=== PATIENT | male | born 1975 | race Two or more races ===

== ENCOUNTER 2024-06-06 10:49 | Emergency (ER) | payer OTHER ==
[~2024-06-06] VITALS: Ht 182.9 cm; Wt 129.1 kg
[2024-06-06 11:26] VITALS: BP 140/88; PULSE 100; RESP 18; TEMP 99.2; O2SAT 96
[2024-06-06] MEDS: EPINEPHrine HCL 1 MG/1 ML AMP SC ONE (11:47)
[2024-06-06] MEDS: diphenhdrAMINE HCL 50 MG/1 ML VL IM ONE (11:47)
[2024-06-06] MEDS: methylPREDNISolone SOD SUCC 125 MG/2 ML VL IM ONE (11:48)
[2024-06-06] MEDS ORDERED: HYDR50TA69 PO (12:19)
[2024-06-06] MEDS ORDERED: PRED20TA2 PO (12:19)
== END 2024-06-06 12:34 | disposition home or self-care (01) ==
LOC: ER 10:49
DX: T78.49XA Other allergy, initial encounter (principal); Z79.52 Long term (current) use of systemic steroids; Z79.899 Other long term (current) drug therapy; X58.XXXA Exposure to other specified factors, initial encounter
CPT/HCPCS: 96372; 99284; J0171; J1200; J2919

== ENCOUNTER 2025-02-04 06:14 | Inpatient (IN) | payer MEDICAID, OTHER ==
[~2025-02-04] VITALS: Ht 172.7 cm; Wt 131.0 kg
[~2025-02-04 06:14] MED LIST: HYDR50TA69 PO; PRED20TA2 PO
--- NOTE | 2025-02-04 07:32 | ED.PDOC ---
History of Present Illness HPI Comments A 49-year-old male presents to the ED c/o moderate atraumatic back pain onset 4 days. Patient states that his back pain is located to the lower back and radiates to his right leg causing some tingling Taking Naproxen with no improvement Patient is able to ambulate normally without assistance. Also c/o testicular discomfort x years and pain is gradually worsening Reports moderate discomfort that is rated 7/10 Has not been seen for this as patient does not have a primary care provider Denies fevers chills night sweats Denies pelvic pain Denies nausea vomiting diarrhea Denies dysuria urgency frequency Denies history of UTI Denies blood in the urine or semen Denies recent instruments/toys and urethra Denies current tobacco use Denies family history of prostate issues Denies history of chronic steroid use or history of osteoporosis Denies any history of cancer Denies fevers chills night sweats nausea vomiting unintentional weight loss Denies IV drug use history of HIV/TB Denies abdominal "tearing" pain Denies syncope Denies urinary incontinence or urinary changes Denies numbness tingling of the groin or inner thigh Denies previous back procedure or surgery Chief Complaint: Back Pain Time Seen by MD: 07:23 Reviewed Notes: Nurses Notes, Medications, Allergies Allergies: Coded Allergies: NO KNOWN ALLERGIES (Unverified , 06/06/24) Home Meds Discontinued Scripts Hydroxyzine Hcl (Hydroxyzine Hcl) 50 Mg Tab, 1 TAB PO TID, #30 TAB Prov:JERRICA MARTINEZ 06/06/24 Prednisone (Prednisone) 20 Mg Tab, 60 MG PO DAILY, #24 TAB Prov:JERRICA MARTINEZ 06/06/24 Information Source: Patient Mode of Arrival: Ambulatory Severity: Moderate Timing: Days Duration: Since onset Prehospital treatment: None Past Medical History PAST MEDICAL HISTORY: Denies Surgical History: Denies all surgeries Family History Family History: Reviewed,noncontributory to illness, Unknown Social History Smoker: Non-Smoker Alcohol: Denies ETOH Use Drugs: Denies Drug Use Lives In: Home Constitutional: denies: chills, diaphoresis, fatigue, fever, malaise, sweats, weakness, others EENTM: denies: blurred vision, double vision, ear bleeding, ear discharge, ear drainage, ear pain, ear ringing, eye pain, eye redness, hearing loss, mouth pain, mouth swelling, nasal discharge, nose bleeding, nose congestion, nose pain, photophobia, tearing, throat pain, throat swelling, voice changes, others Respiratory: denies: cough, hemoptysis, orthopnea, SOB at rest, shortness of breath, SOB with excertion, stridor, wheezing, others Cardiovascular: denies: chest pain, dizzy spells, diaphoresis, Dyspnea on exertion, edema, irregular heart beat, left arm pain, lightheadedness, palpitations, PND, syncope, others Gastrointestinal: denies: abdomen distended, abdominal pain, blood streaked bowels, constipated, diarrhea, dysphagia, difficulty swallowing, hematemesis, melena, nausea, poor appetite, poor fluid intake, rectal bleeding, rectal pain, vomiting, others Genitourinary: denies: burning, dysuria, flank pain, frequency, hematuria, incontinence, penile discharge, penile sore, pain, testicle pain, testicle swelling, urgency, others Neurological: denies: dizziness, fainting, headache, left sided numbness, left sided weakness, numbness, paresthesia, pre-existing deficit, right sided numbness, right sided weakness, seizure, speech problems, tingling, tremors, weakness, others Musculoskeletal: reports: back pain; denies: gout, joint pain, joint swelling, muscle pain, muscle stiffness, neck pain, others Integumetry: denies: bruises, change in color, change in hair/nails, dryness, laceration, lesions, lumps, rash, wounds, others Allergic/Immunocompromised: denies: Difficulty Healing, Frequent Infections, Hives, Itching, others Hematologic/Lymphatic: denies: anemia, blood clots, easy bleeding, easy bruising, swollen glands, others Endocrine: denies: excessive hunger, excessive sweating, excessive thirst, excessive urination, flushing, intolerance to cold, intolerance to heat, unexplained weight gain, unexplained weight loss, others Psychiatric: denies: anxiety, bipolar disorder, depression, hopeless, panic disorder, schizophrenia, sleepless, suicidal, others All Other Systems: Reviewed and Negative Physical Exam General Appearance: No Apparent Distress, Normal HEENT: Normal ENT Inspection, Pharynx Normal, TMs Normal Neck: Full Range of Motion, Non-Tender, Normal, Normal Inspection Respiratory: Chest Non-Tender, Lungs Clear, No Accessory Muscle Use, No Respiratory Distress, Normal Breath Sounds Cardiovascular: No Murmur, No Gallop, Regular Rate/Rhythm Breast Exam: Deferred Gastrointestinal: No Organomegaly, Non Tender, No Pulsatile Mass, Normal Bowel Sounds, Soft Genitalia: Deferred (declined ) Pelvic: Deferred Rectal: Deferred Extremities: No calf tenderness, Normal capillary refill, Normal inspection, Normal range of motion, Non-tender, No pedal edema Musculoskeletal : Extremity Location: Back (Thirty on inspection. No midline tenderness. No bony step-offs on palpation. Localized right-sided lumbosacral TTP. Right straight leg raise test positive. Neurovascular sensation intact) Apperance: Normal Neurologic: Alert, felt hanger II-XII nml as Tested, No Motor Deficits, Normal Affect, No Sensory Deficits Cerebellar Function: Normal Reflexes: Normal Skin: Dry, Normal Color, Warm Lymphatic: No Adenopathy Was a procedure done? Was a procedure done?: No Differential Dx Considerations may include: Strain, sciatica, herniated disk X-Ray, Labs, Meds, VS Vital Signs Date Time Temp Pulse Resp B/P (MAP) Pulse Ox O2 Delivery O2 Flow Rate FiO2 02/04/25 13:54 94 18 162/96 (118) 100 02/04/25 11:51 98.7 102 16 152/107 (122) 95 98.7 02/04/25 10:09 98.7 86 16 145/86 (105) 96 98.7 02/04/25 10:09 86 17 96 Room Air 02/04/25 06:36 97.7 93 17 158/98 (118) 96 97.7 Lab Test 02/04/25 07:28 02/04/25 07:08 Range/Units Urine Color Yellow Yellow Urine Clarity Clear Clear Urine pH 5.5 5.0-9.0 Urine Specific [place] 1.023 1.001-1.035 Urine Protein Trace H Negative Urine Ketones Negative Negative Urine Blood Negative Negative /uL Urine Nitrite Negative Negative Urine Bilirubin Negative Negative Urine Urobilinogen Normal Negative mg/dL Urine Leukocyte Esterase Negative Negative /uL Urine RBC <1 0 - 3 /hpf Urine Microscopic WBC < 1 0-3 /HPF Urine Squamous Epithelial Cells None seen <5 /hpf Urine Bacteria None seen None Seen /hpf Urine Hyaline Casts Few 0 - 2 /lpf Urine Mucus Few None Seen Urine Glucose 4+ H Normal mg/dL White Blood Count 10.0 4.4-10.8 10^3/uL Red Blood Count 4.92 4.5-5.90 10^6/uL Hemoglobin 15.0 13.5-17.5 g/dL Hematocrit 43.2 41.0-53.0 % Mean Corpuscular Volume 87.9 80.0-100.0 fL Mean Corpuscular Hemoglobin 30.5 28.0-32.0 pg Mean Corpuscular Hemoglobin Concent 34.7 32.0-36.0 g/dL Red Cell Distribution Width 13.2 11.8-14.3 % Platelet Count 280 140-450 10^3/uL Mean Platelet Volume 7.3 6.9-10.8 fL Neutrophils (%) (Auto) 58.1 37.0-80.0 % Lymphocytes (%) (Auto) 31.9 10.0-50.0 % Monocytes (%) (Auto) 8.1 0.0-12.0 % Eosinophils (%) (Auto) 1.2 0.0-7.0 % Basophils (%) (Auto) 0.7 0.0-2.0 % Neutrophils # (Auto) 5.8 1.6-8.6 10 ^3/uL Lymphocytes # (Auto) 3.2 0.4-5.4 10 ^3/uL Monocytes # (Auto) 0.8 0-1.3 10 ^3/uL Eosinophils # (Auto) 0.1 0-0.8 10 ^3/uL Basophils # (Auto) 0.1 0-0.2 10 ^3/uL Nucleated Red Blood Cells 0.1 % Sodium Level 139 136-145 mmol/L Potassium Level 3.7 3.5-5.1 mmol/L Chloride Level 102 98-107 mmol/L Carbon Dioxide Level 26 20-31 mmol/L Anion Gap 11 5-15 Blood Urea Nitrogen 24 H 9-23 mg/dL Creatinine 0.90 0.700-1.30 mg/dL Glomerular Filtration Rate Calc 105 >90 mL/min BUN/Creatinine Ratio 26.7 H 10.0-20.0 Serum Glucose 228 H 74-106 mg/dL Hemoglobin A1c 10.5 H <5.7 % A1C Calcium Level 9.9 8.7-10.4 mg/dL Current Medications Medications (Trade) Dose Ordered Sig/Divya Route Start Time Stop Time Status Last Admin Acetaminophen/ Hydrocodone Bitart ([place] 5/325MG Tab) 1 tab ONCE ONCE PO 02/04/25 10:15 02/04/25 10:16 DC 02/04/25 12:11 Sodium Chloride 1,000 ml @ 1,000 mls/hr Q1H ONCE IV 02/04/25 10:15 02/04/25 11:14 DC 02/04/25 11:57 X-Ray, Labs, Meds, VS Comment A 49-year-old male presents to the ED c/o moderate atraumatic back pain onset 4 days. Patient arrives alert and oriented, ABC's intact, afebrile, vital signs stable, saturating well in room air Peripheral IV insertion+ labs were ordered. CBC was ordered to exclude anemia, blood loss, or infection. BMP was ordered to exclude electrolyte abnormalities, renal failure, dehydration, hyperglycemia Urinalysis was ordered to rule out UTI or hematuria. Diagnostic imaging ordered by me and results interpreted by radiology : Testicular US 1. No evidence of torsion, epididymitis, and/or orchitis. 2. Right epididymal oval hypoechoic mass measuring 0.8 cm. In the ER the patient received [place] x1. Further imaging ordered: Lumbar x-ray, right knee x-ray to rule out fractures. Results are pending at this time The patient presents with s/s consistent with Right epididymal oval hypoechoic mass measuring 0.8 cm, atraumatic back pain, and new diagnosis of uncontrolled DM The patient's workup reveals that the patient needs further evaluation and/or treatment for the above medical conditions. Patient has no access to outpatient follow up, no PCP, therefore patient may benefit from Urology consultation to rule out malignancy and DM Education. Also complains of atraumatic right lower back pain that radiates down the right lower extremity. Patient verbalized understanding of the above and is awaiting further evaluation by the admitting service. Time of 1ST Reevaluation: 07:53 Reevaluation 1ST: Unchanged Time of 2ND Reevaluation: 10:12 Reevaluation 2ND: Unchanged Patient Education/Counseling: Diagnosis, Treatment, Prognosis Family Education/Counseling: No Family Present SEPSIS Sepsis Screen Date sepsis recognized/suspect: Feb 04, 2025 Time Sepsis recognized/suspect: 635 Recent Procedure: No On Antibiotic Therapy: No Respiratory Rate >20: No Heart Rate >90: Yes Temp<36 C (96.8 F) or >38.3 C: No SBP <90 or MAP <65 mmHG: No New Acute Mental Status Change: No Is the patient on CPAP, BIPAP,: No Physician Orders Testicular Ultrasound (02/04/25 08:31) Lumbar Spine 3 View (02/04/25 10:07) R Knee 3v Xray (02/04/25 10:07) Heplock Iv (02/04/25 ) Vital Signs Date Time Temp Pulse Resp B/P (MAP) Pulse Ox O2 Delivery O2 Flow Rate FiO2 02/04/25 13:54 94 18 162/96 (118) 100 02/04/25 11:51 98.7 102 16 152/107 (122) 95 98.7 02/04/25 10:09 98.7 86 16 145/86 (105) 96 98.7 02/04/25 10:09 86 17 96 Room Air 02/04/25 06:36 97.7 93 17 158/98 (118) 96 97.7 Laboratory Tests Test 02/04/25 07:08 White Blood Count 10.0 10^3/uL (4.4-10.8) Departure 1 Departure Time of Disposition: 10:12 Impression: Primary Impression: Mass of testicle Additional Impression: Back pain Qualified Codes: M54.50 - Low back pain, unspecified Disposition: ADMITTED INPATIENT Condition: Fair e-Prescriptions No Active Prescriptions or Reported Meds Critical Care Note Critical Care Time?: No Stability Stability form required: No Heart Score Heart Score: Heart Score Response (Comments) Value History N/A 0 EKG N/A 0 Age N/A 0 Risk Factors N/A 0 Troponin N/A 0 Total 0 I personally scribed for CHAITANYA HERNANDEZ NP ([email or web address]) on 02/04/25 at 07:32. Elec tronically submitted by Clif Bills ([email or web address]). CHAITANYA HERNANDEZ NP Feb 04, 2025 07:32
[2025-02-04 07:34] LABS: Chloride 102 mmol/L (98-107); Potassium 3.7 mmol/L (3.5-5.1); Sodium 139 mmol/L (136-145)
[2025-02-04 07:35] LABS: Anion Gap 11 (5-15); Basophils # (auto) 0.1 10 ^3/uL (0-0.2); Basophils % (auto) 0.7 % (0.0-2.0); Calcium 9.9 mg/dL (8.7-10.4); Carbon Dioxide 26 mmol/L (20-31); Eosinophils # (auto) 0.1 10 ^3/uL (0-0.8); Eosinophils % (auto) 1.2 % (0.0-7.0); Hematocrit 43.2 % (41.0-53.0); Lymphocytes # (auto) 3.2 10 ^3/uL (0.4-5.4); Lymphocytes % (auto) 31.9 % (10.0-50.0); Mean Corpuscular Hemoglobin 30.5 pg (28.0-32.0); Mean Corpuscular Hgb Conc. 34.7 g/dL (32.0-36.0); Mean Corpuscular Volume 87.9 fL (80.0-100.0); Monocytes # (auto) 0.8 10 ^3/uL (0-1.3); Monocytes % (auto) 8.1 % (0.0-12.0); Neutrophils # (auto) 5.8 10 ^3/uL (1.6-8.6); Neutrophils % (auto) 58.1 % (37.0-80.0); Nucleated Red Blood Cells % 0.1 %; Platelet Count (auto) 280 10^3/uL (140-450); Red Blood Cells 4.92 10^6/uL (4.5-5.90); Red Cell Distribution Width 13.2 % (11.8-14.3)
[2025-02-04 07:40] LABS: BUN/Creatinine Ratio 26.7 (10.0-20.0); Blood Urea Nitrogen 24 mg/dL (9-23); Glucose 228 mg/dL (74-106)
[2025-02-04 07:53] LABS: Urine Bacteria None Seen /hpf (None Seen)
[2025-02-04 08:09] LABS: Urine Blood Negative /uL (Negative); Urine Clarity Clear (Clear); Urine Color Yellow (Yellow); Urine Hyaline Cast FEW /lpf (0 - 2); Urine Mucus FEW (None Seen); Urine Protein, UAD TRACE (Negative); Urine Specific Gravity 1.023 (1.001-1.035); Urine Squamous Epithelial Cell None Seen /hpf (<5); Urine Urobilinogen Normal (Negative); Urine WBC < 1 /HPF (0-3); Urine pH 5.5 (5.0-9.0)
--- NOTE | 2025-02-04 10:01 | DVH ---
ULTRASOUND OF SCROTUM AND CONTENTS. INDICATION: C/o discomfort sensation to the testicles. COMPARISON: None TECHNIQUE: Multiple real-time grayscale sonographic and color and duplex Doppler images of the scrotu m and its contents were obtained. FINDINGS: The right testicle measures 4.0 x 3.0 x 3.6 cm. The left testicle measures 4.3 x 2.9 x 3.2 cm. Both testicles demonstrate homogeneous echotexture without evidence of focal lesions. The right epididymal head measures 0.7 cm. There is a Right epididymal oval hypoechoic mass measuring 0.8 cm. The left epididymal head measures 1.0 cm. Subsequent color and duplex Doppler interrogation of the testes demonstrated symmetric normal vascula r flow to both testicles. No focal areas of hyperemia were seen. Small bilateral hydroceles. IMPRESSION: 1. No evidence of torsion, epididymitis, and/or orchitis. 2. Right epididymal oval hypoechoic mass measuring 0.8 cm.
--- NOTE | 2025-02-04 10:51 | DVH ---
CLINICAL INDICATION: Pain. R/o fracture TECHNIQUE: 3 radiographic views of the right knee were obtained. Comparison: None FINDINGS/IMPRESSION: There is no evidence of acute fracture or dislocation. The visualized joint space is well maintained. The alignment is anatomical. There is no radiopaque foreign body.
--- NOTE | 2025-02-04 10:52 | DVH ---
INDICATION: Pain. R/o fracture COMPARISON: None TECHNIQUE: 4 views of the lumbar spine were obtained. FINDINGS: The lumbar vertebral alignment is normal. The intervertebral disc spaces are well-maintained. No significant facet arthropathy is noted. No acute fracture, vertebral compression deformity or aggressive osseous lesions. The paravertebral soft tissues are grossly unremarkable. IMPRESSION: No acute fracture.
[2025-02-04] MEDS: SODIUM CHLORIDE 0.9% 1,000 ML IV ONE ×2 (11:57→15:12)
[2025-02-04] MEDS: HYDROcodone-ACET 5/325MG TAB PO ONE (12:11)
[2025-02-04] MEDS ORDERED: DOCUSATE SOD 100 MG CAP PO PRN (14:45)
[2025-02-04] MEDS ORDERED: DEXTROSE (50%) 50ML SYRG IV PRN (14:45)
[2025-02-04] MEDS ORDERED: ACETAMINOPHEN 325 MG TAB PO PRN (14:45)
[2025-02-04] MEDS ORDERED: ONDANSETRON HCL 4 MG/2 ML VIAL IV PRN (14:45)
--- NOTE | 2025-02-04 15:01 | DVHHP2 ---
History of Present Illness Reason for Visit: Back pain History of Present Illness Willard Hobson is a 49-year-old male with no significant past medial history, who came to the hospital due to back pain, right knee pain, and testicular pain. Patient has not been in to see a doctor in over a year. He states last time he went he was told he was borderline diabetic and started on medications, but he ran out and he didn't go back. Patient came to the hospital for multiple complaints. He states he broke his right knee 8 years ago and it started hurting again about a week ago, x-rays were completed. he is also having low back pain, x-rays were completed, and he is complaining of testicular pain for the last year that is worsening. Ultrasound showed a right testicular cyst. I spoke with urology and they stated that there is nothing that needs to be done during this hospitalization. He needs to come to the office as an outpatient. Past Surgical History: Other (knee surgery) Smoke: No ALCOHOL: none Drugs: None Lives: with Family Domestic Violence: Neg Review of Systems Constitutional: No: Fever, Chills, Sweats, Weakness, Malaise, Other Eyes: No: Pain, Vision change, Conjunctivae inflammation, Eyelid inflammation, Other, Redness ENT: No: Ear pain, Ear discharge, Nose pain, Nose discharge, Nose congestion, Mouth pain, Mouth swelling, Throat pain, Throat swelling, Other Respiratory: No: Cough, Dry, Shortness of breath, SOB with excertion, Wheezing, Hemoptysis, Pleuritic Pain, Sputum, Wheezing, Other Cardiovascular: No: Chest Pain, Palpitations, Orthopnea, Paroxysmal Noc. Dyspnea, Edema, Lt Headedness, Other Gastrointestinal: No: Nausea, Vomiting, Abdominal Pain, Diarrhea, Constipation, Melena, Hematochezia, Other Genitourinary: No Dysuria, No Frequency, No Incontinence, No Hematuria, No Retention; Other (testicular pain) Musculoskeletal: back pain, leg pain (right knee pain); No: other, neck pain, shoulder pain, arm pain, hand pain, foot pain Skin: No: Rash, Lesions, Jaundice, Bruising, Other Neurological: No: Weakness, Numbness, Incoordination, Change in speech, Confus ion, Seizures, Other Allergies: Coded Allergies: NO KNOWN ALLERGIES (Unverified , 06/06/24) Medications Current Medications Medications Dose Ordered Sig/Divya Route Start Time Stop Time Status Last Admin Dose Admin Acetaminophen/ Hydrocodone Bitart 1 tab Q4HP PRN PO 02/04/25 14:45 UNV Ondansetron HCl 4 mg Q4HP PRN IV 02/04/25 14:45 UNV Docusate Sodium 100 mg BIDPRN PRN PO 02/04/25 14:45 UNV Acetaminophen 650 mg Q6HP PRN PO 02/04/25 14:45 UNV Exam Vital Signs Vital Signs Date Time Temp Pulse Resp B/P (MAP) Pulse Ox O2 Delivery O2 Flow Rate FiO2 02/04/25 13:54 94 18 162/96 (118) 100 02/04/25 11:51 98.7 98.7 02/04/25 10:09 Room Air General Appearance: Alert, Oriented X3, Cooperative, mild distress HEENT: Atraumatic, PERRLA, Mucous membr. moist/pink Respiratory: Clear to auscultation, Normal air movement Cardiovascular: Regular rate, Normal S1, Normal S2, No murmurs, Gallops Abdominal: Normal bowel sounds, Soft, No tenderness Extremities: No clubbing, No cyanosis, No edema, Normal pulses Skin: No rashes, No breakdown, No significant lesion Neuro: Normal speech, Strength at 5/5 X4 ext, Normal tone Psych/Mental Status: Mental status NL, Mood NL Labs/Xrays Labs Test 02/04/25 07:28 02/04/25 07:08 Range/Units Urine Color Yellow Yellow Urine Clarity Clear Clear Urine pH 5.5 5.0-9.0 Urine Specific [place] 1.023 1.001-1.035 Urine Protein Trace H Negative Urine Ketones Negative Negative Urine Blood Negative Negative /uL Urine Nitrite Negative Negative Urine Bilirubin Negative Negative Urine Urobilinogen Normal Negative mg/dL Urine Leukocyte Esterase Negative Negative /uL Urine RBC <1 0 - 3 /hpf Urine Microscopic WBC < 1 0-3 /HPF Urine Squamous Epithelial Cells None seen <5 /hpf Urine Bacteria None seen None Seen /hpf Urine Hyaline Casts Few 0 - 2 /lpf Urine Mucus Few None Seen Urine Glucose 4+ H Normal mg/dL White Blood Count 10.0 4.4-10.8 10^3/uL Red Blood Count 4.92 4.5-5.90 10^6/uL Hemoglobin 15.0 13.5-17.5 g/dL Hematocrit 43.2 41.0-53.0 % Mean Corpuscular Volume 87.9 80.0-100.0 fL Mean Corpuscular Hemoglobin 30.5 28.0-32.0 pg Mean Corpuscular Hemoglobin Concent 34.7 32.0-36.0 g/dL Red Cell Distribution Width 13.2 11.8-14.3 % Platelet Count 280 140-450 10^3/uL Mean Platelet Volume 7.3 6.9-10.8 fL Neutrophils (%) (Auto) 58.1 37.0-80.0 % Lymphocytes (%) (Auto) 31.9 10.0-50.0 % Monocytes (%) (Auto) 8.1 0.0-12.0 % Eosinophils (%) (Auto) 1.2 0.0-7.0 % Basophils (%) (Auto) 0.7 0.0-2.0 % Neutrophils # (Auto) 5.8 1.6-8.6 10 ^3/uL Lymphocytes # (Auto) 3.2 0.4-5.4 10 ^3/uL Monocytes # (Auto) 0.8 0-1.3 10 ^3/uL Eosinophils # (Auto) 0.1 0-0.8 10 ^3/uL Basophils # (Auto) 0.1 0-0.2 10 ^3/uL Nucleated Red Blood Cells 0.1 % Sodium Level 139 136-145 mmol/L Potassium Level 3.7 3.5-5.1 mmol/L Chloride Level 102 98-107 mmol/L Carbon Dioxide Level 26 20-31 mmol/L Anion Gap 11 5-15 Blood Urea Nitrogen 24 H 9-23 mg/dL Creatinine 0.90 0.700-1.30 mg/dL Glomerular Filtration Rate Calc 105 >90 mL/min BUN/Creatinine Ratio 26.7 H 10.0-20.0 Serum Glucose 228 H 74-106 mg/dL Calcium Level 9.9 8.7-10.4 mg/dL ULTRASOUND OF SCROTUM AND CONTENTS. FINDINGS: The right testicle measures 4.0 x 3.0 x 3.6 cm. The left testicle measures 4.3 x 2.9 x 3.2 cm. Both testicles demonstrate homogeneous echotexture without evidence of focal lesions. The right epididymal head measures 0.7 cm. There is a Right epididymal oval hypoechoic mass measuring 0.8 cm. The left epididymal head measures 1.0 cm. Subsequent color and duplex Doppler interrogation of the testes demonstrated symmetric normal vascular flow to both testicles. No focal areas of hyperemia were seen. Small bilateral hydroceles. IMPRESSION: 1. No evidence of torsion, epididymitis, and/or orchitis. 2. Right epididymal oval hypoechoic mass measuring 0.8 cm. TECHNIQUE: 3 radiographic views of the right knee were obtained. FINDINGS/IMPRESSION: There is no evidence of acute fracture or dislocation. The visualized joint space is well maintained. The alignment is anatomical. There is no radiopaque foreign body. TECHNIQUE: 4 views of the lumbar spine were obtained. FINDINGS: The lumbar vertebral alignment is normal. The intervertebral disc spaces are well-maintained. No significant facet arthropathy is noted. No acute fracture, vertebral compression deformity or aggressive osseous lesions. The paravertebral soft tissues are grossly unremarkable. IMPRESSION: No acute fracture. Assessment/Plan Assessment/Plan Assessment: New diagnosed diabetes, Uncontrolled hypertension, Testicular cyst, Plan: Admit to Med-Surg, Accu checks Q AC & HS with sliding scale, A1c, IV hydration, Diabetic education, Outpatient referral to urology, Start Lantus for glucose control, Start antihypertensive medications, Plan discussed with: Patient, Spouse My Orders Orders - HELGA FLORES Procedure Category Date Status Time Admit ADMIT 02/04/25 Transmitted 14:38 Code Status CODE 02/04/25 Transmitted 14:38 2 Gm Sodium Diet DIET 02/04/25 Transmitted Dinner Hydrocodone-Acet PHA 02/04/25 Logged 5/325mg Tab ([place] 14:45 Ondansetron Hcl PHA 02/04/25 Logged (Zofran) 14:45 Docusate Sodium PHA 02/04/25 Logged Capsule (Colace 14:45 Complete Blood Count LAB 02/05/25 Verified 04:00 Comprehensive LAB 02/05/25 Verified Metabolic Panel 04:00 Condition: Serious CIARA 02/04/25 In Process 14:38 Acetaminophen Tablet PHA 02/04/25 Logged (Tylenol Tablet) 14:45 Date of Service: Feb 04, 2025 Billing Provider: HELGA FLORES Common Visit Codes: [id number] INP/OBS CARE (MOD) HELGA FLORES Feb 04, 2025 15:01
[2025-02-04] MEDS: hydroCHLOROthiazide 25 MG TAB PO ONE (15:13)
[2025-02-04] MEDS: InsuLIN REG 1unit/0.01ml Soln (100units/ml) SC SCH (17:00)
[2025-02-04] MEDS: ACCU-CHEK COMFORT CURVE STRIP VI SCH (17:11)
[2025-02-04 17:16] VITALS: BP 164/87; PULSE 78; RESP 17; TEMP 98; O2SAT 96
[2025-02-04 20:49] VITALS: BP 174/102; PULSE 85; RESP 17; TEMP 98.5; O2SAT 97
[2025-02-04] MEDS: HYDROcodone-ACET 5/325MG TAB PO PRN (21:13)
[2025-02-04] MEDS: INSULIN LANTUS (GLARGINE) 1 /0.01ml (100units/ml) SC SCH (21:17)
[2025-02-04 22:10] VITALS: BP 152/89; PULSE 83; RESP 20; TEMP 97.7; O2SAT 95
[2025-02-04 22:57] VITALS: BP 156/83
[2025-02-04] MEDS: LISINOPRIL 5 MG TAB PO ONE (23:12)
[2025-02-05] VITALS (8 sets, daily range): BP systolic 138–187; BP diastolic 86–106; PULSE 80–94; RESP 18–20; TEMP 97.4–98.6; O2SAT 95–98
[2025-02-05] MEDS: cloNIDine HCL 0.1 MG TAB PO ONE (05:35)
[2025-02-05 07:59] LABS: Basophils # (auto) 0.1 10 ^3/uL (0-0.2); Basophils % (auto) 0.6 % (0.0-2.0); Eosinophils # (auto) 0.1 10 ^3/uL (0-0.8); Eosinophils % (auto) 1.3 % (0.0-7.0); Hematocrit 40.3 % (41.0-53.0); Hemoglobin 14.2 g/dL (13.5-17.5); Lymphocytes # (auto) 2.4 10 ^3/uL (0.4-5.4); Lymphocytes % (auto) 30.9 % (10.0-50.0); Mean Corpuscular Hemoglobin 30.7 pg (28.0-32.0); Mean Corpuscular Hgb Conc. 35.2 g/dL (32.0-36.0); Mean Corpuscular Volume 87.2 fL (80.0-100.0); Monocytes # (auto) 0.7 10 ^3/uL (0-1.3); Monocytes % (auto) 8.8 % (0.0-12.0); Neutrophils # (auto) 4.5 10 ^3/uL (1.6-8.6); Neutrophils % (auto) 58.4 % (37.0-80.0); Nucleated Red Blood Cells % 0.2 %; Platelet Count (auto) 257 10^3/uL (140-450); Red Blood Cells 4.63 10^6/uL (4.5-5.90); Red Cell Distribution Width 12.9 % (11.8-14.3); White Blood Cell 7.8 10^3/uL (4.4-10.8)
[2025-02-05 08:26] LABS: Alanine Aminotransferase 30 U/L (7-40); Albumin 3.9 g/dL (3.2-4.8); Alkaline Phosphatase 78 U/L (46-116); Calcium 9.8 mg/dL (8.7-10.4); Chloride 99 mmol/L (98-107)
[2025-02-05 08:27] LABS: Aspartate Aminotransferase 24 U/L (<34); BUN/Creatinine Ratio 25.6 (10.0-20.0); Bilirubin, Total 0.6 mg/dL (0.2-1.0); Blood Urea Nitrogen 20 mg/dL (9-23); Total Protein 6.2 g/dL (5.7-8.2)
[2025-02-05 08:28] LABS: Glucose 188 mg/dL (74-106)
[2025-02-05 08:47] LABS: Potassium 3.4 mmol/L (3.5-5.1); Sodium 136 mmol/L (136-145)
[2025-02-05 08:48] LABS: Anion Gap 10 (5-15); Carbon Dioxide 27 mmol/L (20-31)
[2025-02-05] MEDS: hydroCHLOROthiazide 25 MG TAB PO SCH (10:26)
--- NOTE | 2025-02-05 11:02 | DVHPN2 ---
Reviewed: Care Plan, H&P, Labs, Medications, Previous Orders, Radiology Changes from previous H/P or p: No Changes Eyes: No Pain, No Vision change, No Conjunctivae inflammation, No Eyelid inflammation, No Other, No Redness ENT: No Ear pain, No Ear discharge, No Nose pain, No Nose discharge, No Nose congestion, No Mouth pain, No Mouth swelling, No Throat pain, No Throat swelling, No Other Cardiovascular: No Chest Pain, No Palpitations, No Orthopnea, No Paroxysmal Noc. Dyspnea, No Edema, No Lt Headedness, No Other Respiratory: No Cough, No Dry, No Shortness of breath, No SOB with excertion, No Wheezing, No Hemoptysis, No Pleuritic Pain, No Sputum, No Other Gastrointestinal: No Nausea, No Vomiting, No Abdominal Pain, No Diarrhea, No Constipation, No Melena, No Hematochezia, No Other Genitourinary: No Dysuria, No Frequency, No Incontinence, No Hematuria, No Retention; Other (testicular pain) Musculoskeletal: No other, No neck pain, No shoulder pain, No arm pain; back pain; No hand pain; leg pain (right knee pain); No foot pain Skin: No Rash, No Lesions, No Jaundice, No Bruising, No Other Objective Vitals Vital Signs Date Time Temp Pulse Resp B/P (MAP) Pulse Ox O2 Delivery O2 Flow Rate FiO2 02/05/25 10:26 154/93 02/05/25 09:00 98.2 80 18 95 98.2 02/04/25 17:16 Room Air* 0 21 Intake/Output Intake and Output 02/05/25 07:00 Intake Total 300 ml Balance 300 ml Intake Oral 300 ml # Voids 2 Medications Current Medications Medications Dose Ordered Sig/Divya Route Start Time Stop Time Status Last Admin Dose Admin Acetaminophen/ Hydrocodone Bitart 1 tab Q4HP PRN PO 02/04/25 14:45 02/05/25 05:32 1 TAB Ondansetron HCl 4 mg Q4HP PRN IV 02/04/25 14:45 Docusate Sodium 100 mg BIDPRN PRN PO 02/04/25 14:45 Acetaminophen 650 mg Q6HP PRN PO 02/04/25 14:45 Diagnostic Test (Pha) 1 strip ACHS 02/04/25 17:00 02/05/25 06:00 1 STRIP Insulin Human Regular ACHS SC 02/04/25 17:00 02/05/25 06:00 4 UNITS Dextrose 50 ml UD PRN IV 02/04/25 14:45 Hydrochlorothiazide 25 mg DAILY PO 02/05/25 10:00 02/05/25 10:26 25 MG Insulin Glargine 10 units HS SC 02/04/25 22:00 02/04/25 21:17 10 UNITS Laboratory Results Laboratory Tests 02/05/25 06:14 Chemistry Test 02/05/25 06:14 Albumin 3.9 g/dL (3.2-4.8) Calcium Level 9.8 mg/dL (8.7-10.4) Total Protein 6.2 g/dL (5.7-8.2) LFT Test 02/05/25 06:14 Alanine Aminotransferase (ALT) 30 U/L (7-40) Alkaline Phosphatase 78 U/L (46-116) Aspartate Amino Transferase (AST) 24 U/L (<34) Total Bilirubin 0.6 mg/dL (0.2-1.0) Urinalysis Test 02/04/25 07:28 Urine Color Yellow (Yellow) Urine Clarity Clear (Clear) Urine pH 5.5 (5.0-9.0) Urine Specific [place] 1.023 (1.001-1.035) Urine Protein Trace (Negative) H Urine Ketones Negative (Negative) Urine Blood Negative /uL (Negative) Urine Nitrite Negative (Negative) Urine Bilirubin Negative (Negative) Urine Urobilinogen Normal mg/dL (Negative) Urine Leukocyte Esterase Negative /uL (Negative) Urine RBC <1 /hpf (0 - 3) Urine Microscopic WBC < 1 /HPF (0-3) Urine Squamous Epithelial Cells None seen /hpf (<5) Urine Bacteria None seen /hpf (None Seen) Urine Hyaline Casts Few /lpf (0 - 2) Urine Mucus Few (None Seen) Urine Glucose 4+ mg/dL (Normal) H Labs and/or images reviewed: Labs reviewed by me, Image(s) reviewed by me Assessment/Plan Assessment/Plan Uncontrolled newly diagnosed diabetes glucose 246 A1c 10.5: Diabetic education insulin sliding scale Hypertension Testicular pain: Testicular ultrasound negative Right knee pain: Right knee x-ray negative Low back pain LS spine x-ray negative Needs diabetes supplies at the time of discharge Plan discussed with: Patient, Other Date of Service: Feb 05, 2025 Billing Provider: NICHOLAS CALDWELL MD Common Visit Codes: [id number] INP/OBS CARE(HIGH) NICHOLAS CALDWELL MD Feb 05, 2025 11:02
[2025-02-06 01:00] VITALS: BP 162/95; PULSE 90; RESP 18; TEMP 98.3; O2SAT 92
[2025-02-06 05:00] VITALS: BP 151/97; PULSE 93; RESP 18; TEMP 98; O2SAT 97
[2025-02-06 09:26] VITALS: BP 162/102; PULSE 86; RESP 17; TEMP 98.4; O2SAT 96
--- NOTE | 2025-02-06 11:21 | DVHPN2 ---
Reviewed: Care Plan, H&P, Labs, Medications, Previous Orders, Radiology Changes from previous H/P or p: No Changes Eyes: No Pain, No Vision change, No Conjunctivae inflammation, No Eyelid inflammation, No Other, No Redness ENT: No Ear pain, No Ear discharge, No Nose pain, No Nose discharge, No Nose congestion, No Mouth pain, No Mouth swelling, No Throat pain, No Throat swelling, No Other Cardiovascular: No Chest Pain, No Palpitations, No Orthopnea, No Paroxysmal Noc. Dyspnea, No Edema, No Lt Headedness, No Other Respiratory: No Cough, No Dry, No Shortness of breath, No SOB with excertion, No Wheezing, No Hemoptysis, No Pleuritic Pain, No Sputum, No Other Gastrointestinal: No Nausea, No Vomiting, No Abdominal Pain, No Diarrhea, No Constipation, No Melena, No Hematochezia, No Other Genitourinary: No Dysuria, No Frequency, No Incontinence, No Hematuria, No Retention; Other (testicular pain) Musculoskeletal: No other, No neck pain, No shoulder pain, No arm pain; back pain; No hand pain; leg pain (right knee pain); No foot pain Skin: No Rash, No Lesions, No Jaundice, No Bruising, No Other Objective Vitals Vital Signs Date Time Temp Pulse Resp B/P (MAP) Pulse Ox O2 Delivery O2 Flow Rate FiO2 02/06/25 09:32 162/102 02/06/25 09:26 98.4 86 17 96 98.4 02/06/25 08:00 Room Air* 0 21 Intake/Output Intake and Output 02/06/25 07:00 Intake Total 2290 ml Balance 2290 ml Intake Oral 2290 ml # Voids 5 Medications Current Medications Medications Dose Ordered Sig/Divya Route Start Time Stop Time Status Last Admin Dose Admin Acetaminophen/ Hydrocodone Bitart 1 tab Q4HP PRN PO 02/04/25 14:45 02/06/25 06:45 1 TAB Ondansetron HCl 4 mg Q4HP PRN IV 02/04/25 14:45 Docusate Sodium 100 mg BIDPRN PRN PO 02/04/25 14:45 Acetaminophen 650 mg Q6HP PRN PO 02/04/25 14:45 Diagnostic Test (Pha) 1 strip ACHS 02/04/25 17:00 02/06/25 07:15 1 STRIP Insulin Human Regular ACHS SC 02/04/25 17:00 02/06/25 07:17 3 UNITS Dextrose 50 ml UD PRN IV 02/04/25 14:45 Hydrochlorothiazide 25 mg DAILY PO 02/05/25 10:00 02/06/25 09:32 25 MG Insulin Glargine 10 units HS SC 02/04/25 22:00 02/05/25 22:22 10 UNITS Laboratory Results Laboratory Tests 02/05/25 06:14 Urinalysis Test 02/04/25 07:28 Urine Color Yellow (Yellow) Urine Clarity Clear (Clear) Urine pH 5.5 (5.0-9.0) Urine Specific [place] 1.023 (1.001-1.035) Urine Protein Trace (Negative) H Urine Ketones Negative (Negative) Urine Blood Negative /uL (Negative) Urine Nitrite Negative (Negative) Urine Bilirubin Negative (Negative) Urine Urobilinogen Normal mg/dL (Negative) Urine Leukocyte Esterase Negative /uL (Negative) Urine RBC <1 /hpf (0 - 3) Urine Microscopic WBC < 1 /HPF (0-3) Urine Squamous Epithelial Cells None seen /hpf (<5) Urine Bacteria None seen /hpf (None Seen) Urine Hyaline Casts Few /lpf (0 - 2) Urine Mucus Few (None Seen) Urine Glucose 4+ mg/dL (Normal) H Labs and/or images reviewed: Labs reviewed by me, Image(s) reviewed by me Assessment/Plan Assessment/Plan Uncontrolled newly diagnosed diabetes glucose 246 A1c 10.5: Diabetic education insulin sliding scale Hypertension Testicular pain: Testicular ultrasound negative Right knee pain: Right knee x-ray negative Low back pain LS spine x-ray negative Needs diabetes supplies at the time of discharge Plan discussed with: Patient Date of Service: Feb 06, 2025 Billing Provider: NICHOLAS CALDWELL MD Common Visit Codes: [id number] INP/OBS CARE(HIGH) NICHOLAS CALDWELL MD Feb 06, 2025 11:21
[2025-02-06] MEDS ORDERED: HYDR-4902 PO (11:22)
[2025-02-06] MEDS ORDERED: METF-372 PO (11:22)
--- NOTE | 2025-02-06 11:32 | DVHDS2 ---
Discharge Summary Date of Admission Feb 04, 2025 at 14:38 Date of Discharge: Feb 06, 2025 Admitting Diagnosis Generalized weakness and fall Wounds: None Labs/Diagnostic Data: Laboratory Results Test 02/06/25 05:57 02/05/25 06:14 02/04/25 07:28 02/04/25 07:08 POC Glucose 194 mg/dl (70-106) White Blood Count 7.8 10^3/uL (4.4-10.8) Red Blood Count 4.63 10^6/uL (4.5-5.90) Hemoglobin 14.2 g/dL (13.5-17.5) Hematocrit 40.3 % (41.0-53.0) Mean Corpuscular Volume 87.2 fL (80.0-100.0) Mean Corpuscular Hemoglobin 30.7 pg (28.0-32.0) Mean Corpuscular Hemoglobin Concent 35.2 g/dL (32.0-36.0) Red Cell Distribution Width 12.9 % (11.8-14.3) Platelet Count 257 10^3/uL (140-450) Mean Platelet Volume 7.4 fL (6.9-10.8) Neutrophils (%) (Auto) 58.4 % (37.0-80.0) Lymphocytes (%) (Auto) 30.9 % (10.0-50.0) Monocytes (%) (Auto) 8.8 % (0.0-12.0) Eosinophils (%) (Auto) 1.3 % (0.0-7.0) Basophils (%) (Auto) 0.6 % (0.0-2.0) Neutrophils # (Auto) 4.5 10 ^3/uL (1.6-8.6) Lymphocytes # (Auto) 2.4 10 ^3/uL (0.4-5.4) Monocytes # (Auto) 0.7 10 ^3/uL (0-1.3) Eosinophils # (Auto) 0.1 10 ^3/uL (0-0.8) Basophils # (Auto) 0.1 10 ^3/uL (0-0.2) Nucleated Red Blood Cells 0.2 % Sodium Level 136 mmol/L (136-145) Potassium Level 3.4 mmol/L (3.5-5.1) Chloride Level 99 mmol/L (98-107) Carbon Dioxide Level 27 mmol/L (20-31) Anion Gap 10 (5-15) Blood Urea Nitrogen 20 mg/dL (9-23) Creatinine 0.78 mg/dL (0.700-1.30) Glomerular Filtration Rate Calc 109 mL/min (>90) BUN/Creatinine Ratio 25.6 (10.0-20.0) Serum Glucose 188 mg/dL (74-106) Calcium Level 9.8 mg/dL (8.7-10.4) Total Bilirubin 0.6 mg/dL (0.2-1.0) Aspartate Amino Transferase (AST) 24 U/L (<34) Alanine Aminotransferase (ALT) 30 U/L (7-40) Alkaline Phosphatase 78 U/L (46-116) Total Protein 6.2 g/dL (5.7-8.2) Albumin 3.9 g/dL (3.2-4.8) Urine Color Yellow (Yellow) Urine Clarity Clear (Clear) Urine pH 5.5 (5.0-9.0) Urine Specific [place] 1.023 (1.001-1.035) Urine Protein Trace (Negative) Urine Ketones Negative (Negative) Urine Blood Negative /uL (Negative) Urine Nitrite Negative (Negative) Urine Bilirubin Negative (Negative) Urine Urobilinogen Normal mg/dL (Negative) Urine Leukocyte Esterase Negative /uL (Negative) Urine RBC <1 /hpf (0 - 3) Urine Microscopic WBC < 1 /HPF (0-3) Urine Squamous Epithelial Cells None seen /hpf (<5) Urine Bacteria None seen /hpf (None Seen) Urine Hyaline Casts Few /lpf (0 - 2) Urine Mucus Few (None Seen) Urine Glucose 4+ mg/dL (Normal) Hemoglobin A1c 10.5 % A1C (<5.7) Other Laboratory Tests 02/05/25 06:14 Brief Hx & Hospital Course: 49-year-old male came in for generalized weakness pain in the right knee and testicular pain. Found to have new diagnosis of diabetes type 2 A1c of 10.5 glucose 246 treated with the insulin sliding scale diabetic education was given patient testicular ultrasound is negative right knee x-ray was negative also complained of low back pain LS spine x-rays negative. Patient being discharged home on metformin and [place]. Hard copy prescription given for test strips lancets and Accu-Chek machine Consults/Reason for consult None Operations or Procedures None Condition at Discharge: Fair Final Diagnosis/Problems List Uncontrolled newly diagnosed diabetes glucose 246 A1c 10.5: Diabetic education insulin sliding scale Hypertension Testicular pain: Testicular ultrasound negative Right knee pain: Right knee x-ray negative Low back pain LS spine x-ray negative Discharge Disposition: Home Discharge Instruct/Medications Diet: Consistent carbohydrate Activity: Light activity Follow Up/Referral: Follow up with the discharge clinic in one week Fill the prescription today and start taking medications Check blood sugar 3 times a day Medications: Metformin [place] Transmitted to [facility] Hard copy prescription given for Accu-Chek machine test strips and lancets 39 (Time taken for discharge summary 39 minutes) Discharge Statement: "Patient was advised to return to the ER or call 911 if any headaches, dizziness, shortness of breath, chest pain, abdominal pain, bleeding, fevers, or worsening of medical condition. Patient was counseled about treatment plan, medications, possible side effects, patientverbalized understanding. All questions were answered to the best of my ability. This discharge took greater then 30 minutes in planning, reviewing documentation, counseling the patient, and discussing with other team members." ASSESSMENT ASSESSMENT Hospital Course Uneventful Assessment Uncontrolled newly diagnosed diabetes glucose 246 A1c 10.5: Diabetic education insulin sliding scale Hypertension Testicular pain: Testicular ultrasound negative Right knee pain: Right knee x-ray negative Low back pain LS spine x-ray negative Date of Service: Feb 06, 2025 Billing Provider: NICHOLAS CALDWELL MD Common Visit Codes: [id number] DISCH DAY >30min NICHOLAS CALDWELL MD Feb 06, 2025 11:32
[2025-02-06] MEDS ORDERED: METO-158 PO (11:34)
[2025-02-06] MEDS: cloNIDine HCL 0.1 MG TAB PO ONE (12:05)
[2025-02-06 13:00] VITALS: BP 164/113; PULSE 86; RESP 17; TEMP 98.1; O2SAT 94
[2025-02-06 13:12] VITALS: BP 130/83; PULSE 102
[2025-02-06 16:37] VITALS: BP 146/90; PULSE 97; RESP 17; TEMP 98.2; O2SAT 95
== END 2025-02-06 17:34 | disposition home or self-care (01) | DRG 420 ==
LOC: ER 06:14 → OVERFLOW 14:38 → WEST WING 22:10
PROVIDERS: ADMIT Family Medicine; ATTEND Family Medicine
DX: E11.65 Type 2 diabetes mellitus with hyperglycemia (principal); I10 Essential (primary) hypertension; N50.819 Testicular pain, unspecified; N44.2 Benign cyst of testis; M25.561 Pain in right knee; M54.50 Low back pain, unspecified
CPT/HCPCS: 36415; 72100; 73562; 76870; 80048; 80053; 81001; 82962; 83036; 85025; 96360; G0378; J1815

== ENCOUNTER 2025-02-13 07:19 | Emergency (ER) | payer MEDICAID ==
[~2025-02-13] VITALS: Ht 172.7 cm; Wt 123.8 kg
[~2025-02-13 07:19] MED LIST changes: +HYDR-4902 PO; -HYDR50TA69 PO; +METF-372 PO; +METO-158 PO; -PRED20TA2 PO
--- NOTE | 2025-02-13 07:43 | ED.PDOC ---
HPI Allergic reaction HPI Comments A 49 YEAR-OLD MALE PRESENTS TO THE ED WITH A CHIEF COMPLAINT OF RASH S/P VISIT TO [facility] X[facility] DAYS AGO. PATIENT REPORTS RASH TO CHEST, BACK, BILATERAL LEGS AND ARMS AFTER BEING PRESCRIBED NORCO. PATIENT IS CONCERNED HE MAY BE HAVING AN ALLERGIC REACTION O HIS NORCO HE HAS BEEN TAKING. PATIENT OTHERWISE DENIES CHEST PAIN, NAUSEA, VOMITING, DIZZINESS, OR OTHER COMPLAINTS. NO OTHER SYMPTOMS OR MODIFYING FACTORS AT THIS TIME. AT TIME OF EXAM, PATIENT IS ALERT, ORIENTED X 4, AND HAS STEADY GAIT. Chief Complaint: ALLERGIC REACTION Time Seen by MD: 07:30 Reviewed Notes: Nurses Notes, Medications, Allergies Allergies: Coded Allergies: NO KNOWN ALLERGIES (Unverified , 06/06/24) Home Meds Active Scripts Ibuprofen (Ibuprofen) 800 Mg Tab, 1 TAB PO TID, #30 TAB Prov:JERRICA MARTINEZ 02/13/25 Hydroxyzine Hcl (Hydroxyzine Hcl) 50 Mg Tab, 1 TAB PO BID, #30 TAB Prov:JERRICA MARTINEZ 02/13/25 Triamcinolone Acetonide (Triamcinolone Acetonide) 0.1 % Oin, 1 APPLIC TOP BID, #60 GRAMS Prov:JERRICA MARTINEZ 02/13/25 Metoprolol Tartrate (Metoprolol Tartrate) 50 Mg Tab, 50 MG PO BID, #180 TAB Prov:NICHOLAS CALDWELL MD 02/06/25 Hydrocodone-Acetaminophen (Hydrocodone Bitartrate/AC 5-325 mg) 1 Tab Tab, 1 TAB PO QID PRN, #30 TAB Prov:NICHOLAS CALDWELL MD 02/06/25 Metformin Hydrochloride (Metformin Hcl) 1,000 Mg Tab, 1 TAB PO BID, #180 TAB 3 Refills Prov:NICHOLAS CALDWELL MD 02/06/25 Information Source: Patient Mode of Arrival: Ambulatory Severity: Mild Rash: Moderate SOB: None Difficulty swallowing: None Pruritus: Mild, Moderate Timing: Days (X3 ) Duration: Since onset, Days Prehospital treatment: Pain Meds Location: Arm (BILATERAL ARMS), Chest, Leg, Neck Exposed to: Medication Developed: Pruritus, Rash History of: None Modyifying Factors: Diphenhydramine Associated Sign and Symptoms: None Past Medical History PAST MEDICAL HISTORY: DM Past Medical History (Other): CHRONIC LOW BACK PAIN Surgical History: Denies all surgeries Family History Family History: Reviewed,noncontributory to illness, Unknown Social History Smoker: Non-Smoker Alcohol: Denies ETOH Use Drugs: Denies Drug Use Lives In: Home Constitutional: denies: chills, diaphoresis, fatigue, fever, malaise, sweats, weakness, others EENTM: denies: blurred vision, double vision, ear bleeding, ear discharge, ear drainage, ear pain, ear ringing, eye pain, eye redness, hearing loss, mouth pain, mouth swelling, nasal discharge, nose bleeding, nose congestion, nose pain, photophobia, tearing, throat pain, throat swelling, voice changes, others Respiratory: denies: cough, hemoptysis, orthopnea, SOB at rest, shortness of breath, SOB with excertion, stridor, wheezing, others Cardiovascular: denies: chest pain, dizzy spells, diaphoresis, Dyspnea on exertion, edema, irregular heart beat, left arm pain, lightheadedness, pa lpitations, PND, syncope, others Gastrointestinal: denies: abdomen distended, abdominal pain, blood streaked bowels, constipated, diarrhea, dysphagia, difficulty swallowing, hematemesis, melena, nausea, poor appetite, poor fluid intake, rectal bleeding, rectal pain, vomiting, others Genitourinary: denies: burning, dysuria, flank pain, frequency, hematuria, incontinence, penile discharge, penile sore, pain, testicle pain, testicle swelling, urgency, others Neurological: denies: dizziness, fainting, headache, left sided numbness, left sided weakness, numbness, paresthesia, pre-existing deficit, right sided numbness, right sided weakness, seizure, speech problems, tingling, tremors, weakness, others Musculoskeletal: reports: back pain, muscle pain; denies: gout, joint pain, joint swelling, muscle stiffness, neck pain, others Integumetry: reports: rash (RASH TO CHEST, BACK, BILATERAL ARMS, BILATERAL LEGS ); denies: bruises, change in color, change in hair/nails, dryness, laceration, lesions, lumps, wounds, others Allergic/Immunocompromised: reports: Hives, Itching; denies: Difficulty Healing, Frequent Infections, others Hematologic/Lymphatic: denies: anemia, blood clots, easy bleeding, easy bruising, swollen glands, others Endocrine: denies: excessive hunger, excessive sweating, excessive thirst, excessive urination, flushing, intolerance to cold, intolerance to heat, unexplained weight gain, unexplained weight loss, others Psychiatric: denies: anxiety, bipolar disorder, depression, hopeless, panic disorder, schizophrenia, sleepless, suicidal, others All Other Systems: Reviewed and Negative Physical Exam General Appearance: Obese HEENT: Normal ENT Inspection, PERRL/EOMI, Pharynx Normal, TMs Normal Neck: Full Range of Motion, Non-Tender, Normal, Normal Inspection Respiratory: Chest Non-Tender, Lungs Clear, No Accessory Muscle Use, No Respiratory Distress, Normal Breath Sounds Cardiovascular: No Edema, No JVD, No Murmur, No Gallop, Normal Peripheral Pulses, Regular Rate/Rhythm Breast Exam: Deferred Gastrointestinal: No Organomegaly, Non Tender, No Pulsatile Mass, Normal Bowel Sounds, Soft Genitalia: Deferred Pelvic: Deferred Rectal: Deferred Extremities: No calf tenderness, Normal capillary refill, Normal inspection, Normal range of motion, Non-tender, No pedal edema Musculoskeletal : Location: Bilateral Extremity Location: Back Apperance: Tenderness: Moderate (TENDERNESS AND MUSCLE SPASM ON LOWER BACK, NO BONY TENDERNESS, SWELLING AND DEFORMITY. NORMAL ROM. 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 Was a procedure done?: No Differential diagnosis (all) Differential Diagnosis: Contact Dermatitis, Drug Reaction, Hypotension, Urticaria Other Differential Diagnosis ALLERGIC REACTION X-Ray, Labs, Meds, VS Vital Signs Date Time Temp Pulse Resp B/P (MAP) Pulse Ox O2 Delivery O2 Flow Rate FiO2 02/13/25 07:48 98.0 96 16 144/101 (115) 96 98.0 02/13/25 07:48 16 96 Room Air* 0 21 X-Ray, Labs, Meds, VS Comment EXTERNAL MEDICAL RECORDS: NONE INDEPENDENT HISTORIANS: NONE SOCIAL DETERMINANTS OF HEALTH: NONE LABS ORDERED: NONE REVIEWED AND INTERPRETED RESULTS: NONE IMAGING ORDERED: NONE TREATMENTS ORDERED: NONE PATIENT'S CASE AND RESULTS HAVE BEEN DISCUSSED WITH THE ED ATTENDING PHYSICIAN AND THEY AGREE WITH MY PLAN OF CARE. PATIENT WAS PRESCRIBED TRIAMCINOLONE CREAM, VISTARIL 25MG, AND IBUPROFEN 800MG I HAVE DISCUSSED IMAGING AND LAB RESULTS WITH THE PATIENT AND HAVE INSTRUCTED THE PATIENT TO FOLLOW UP WITH THEIR PCP IN 1-2 DAYS. THE PATIENT FULLY UNDERSTANDS THEIR RESULTS AND ARE AWARE THEY NEED TO FOLLOW UP WITH THEIR PCP FOR FURTHER EVALUATION IF THEIR SYMPTOMS PERSIST. Time of 1ST Reevaluation: 10:21 Reevaluation 1ST: Improved Patient Education/Counseling: Diagnosis, Treatment, Need For Follow Up Family Education/Counseling: Diagnosis, Treatment, Need For Follow Up Medical Screening: No EMC Exist At This Time SEPSIS Sepsis Screen Vital Signs Date Time Temp Pulse Resp B/P (MAP) Pulse Ox O2 Delivery O2 Flow Rate FiO2 02/13/25 07:48 98.0 96 16 144/101 (115) 96 98.0 02/13/25 07:48 16 96 Room Air* 0 21 Departure 1 Departure Time of Disposition: 10:21 Impression: Primary Impression: Allergic reaction Qualified Codes: T78.40XA - Allergy, unspecified, initial encounter Additional Impression: Chronic lower back pain Qualified Codes: M54.50 - Low back pain, unspecified; G89.29 - Other chronic pain Disposition: 01 HOME / SELF CARE / HOMELESS Condition: Stable Additional Instructions: F/U PCP IN 2 DAYS RECHECK. IF CONDITION BECOME WORSE, RETURN TO ED [facility]. e-Prescriptions Ibuprofen (Ibuprofen) 800 Mg Tab 1 TAB PO TID, #30 TAB Prov: JERRICA MARTINEZ 02/13/25 Hydroxyzine Hcl (Hydroxyzine Hcl) 50 Mg Tab 1 TAB PO BID, #30 TAB Prov: JERRICA MARTINEZ 02/13/25 Triamcinolone Acetonide (Triamcinolone Acetonide) 0.1 % Oin 1 APPLIC TOP BID, #60 GRAMS Prov: JERRICA MARTINEZ 02/13/25 Discharged With: Self Critical Care Note Critical Care Time?: No Stability Stability form required: No I personally scribed for JERRICA MARTINEZ ([email or web address]) on 02/13/25 at 07:43. Electronically submitted by Dylon Souza ([email or web address]). I personally scribed for JERRICA MARTINEZ ([email or web address]) on 02/13/25 at 07:52. Electronically submitted by Dylon Souza ([email or web address]). JERRICA MARTINEZ Feb 13, 2025 07:43
[2025-02-13 08:15] VITALS: BP 123/103; PULSE 93; RESP 16; TEMP 98.4; O2SAT 95
[2025-02-13] MEDS ORDERED: IBUP-1456 PO (08:18)
[2025-02-13] MEDS ORDERED: TRIA0.1O TOP (08:18)
[2025-02-13] MEDS ORDERED: HYDR50TA69 PO (08:18)
== END 2025-02-13 08:35 | disposition home or self-care (01) ==
LOC: ER 07:19
DX: T78.49XA Other allergy, initial encounter (principal); G89.29 Other chronic pain; M54.50 Low back pain, unspecified; E11.9 Type 2 diabetes mellitus without complications; Z79.84 Long term (current) use of oral hypoglycemic drugs; Z79.899 Other long term (current) drug therapy; X58.XXXA Exposure to other specified factors, initial encounter

== ENCOUNTER 2025-04-19 16:13 | Emergency (ER) | payer MEDICAID, OTHER ==
[~2025-04-19] VITALS: Ht 170.2 cm; Wt 115.0 kg
[~2025-04-19 16:13] MED LIST changes: +HYDR50TA69 PO; +IBUP-1456 PO; +TRIA0.1O TOP
[2025-04-19 16:15] VITALS: BP 157/91; PULSE 96; RESP 18; TEMP 98; O2SAT 97
--- NOTE | 2025-04-19 16:52 | ED.PDOC ---
Musculoskeletal HPI Comments 49 y.o male with PMHx of HTN and DM, presents to the ED for a chief complaint of bilateral lower extremity pain that started 3 months ago associated with numbness sensation. Patient reports ongoing symptoms with constant pain that has no alleviating factors despite taking Gabapentin d/t hx of neuropathy. Patient reports that past couple of days, lower extremity have become extremely weak is unable to ambulate. Numbness presents from lower pelvic region radiating to thigh and pain presents from the top of his knee cap radiating down to his feet. He denies any recent falls, incontinence, fever, chills. Chief Complaint: Lower Extremity Time Seen by MD: 16:43 Primary Care Provider: UNKNOWN Reviewed Notes: Nurses Notes, Medications, Allergies Allergies: Coded Allergies: NO KNOWN ALLERGIES (Unverified , 06/06/24) Home Meds Active Scripts Ibuprofen (Ibuprofen) 800 Mg Tab, 1 TAB PO TID, #30 TAB Prov:JERRICA MARTINEZ 02/13/25 Hydroxyzine Hcl (Hydroxyzine Hcl) 50 Mg Tab, 1 TAB PO BID, #30 TAB Prov:JERRICA MARTINEZ 02/13/25 Triamcinolone Acetonide (Triamcinolone Acetonide) 0.1 % Oin, 1 APPLIC TOP BID, #60 GRAMS Prov:JERRICA MARTINEZ 02/13/25 Metoprolol Tartrate (Metoprolol Tartrate) 50 Mg Tab, 50 MG PO BID, #180 TAB Prov:NICHOLAS CALDWELL MD 02/06/25 Hydrocodone-Acetaminophen (Hydrocodone Bitartrate/AC 5-325 mg) 1 Tab Tab, 1 TAB PO QID PRN, #30 TAB Prov:NICHOLAS CALDWELL MD 02/06/25 Metformin Hydrochloride (Metformin Hcl) 1,000 Mg Tab, 1 TAB PO BID, #180 TAB 3 Refills Prov:NICHOLAS CALDWELL MD 02/06/25 Information Source: Patient Mode of Arrival: Wheelchair Location: Bilateral Extremity Location: Leg Severity: Moderate Pain: Moderate Circumstances: Spontaneous Onset of Symptoms: Spontaneous Symptoms: Pain Associated signs and symptoms: Numbness, Leg pain Past Medical History PAST MEDICAL HISTORY: DM Surgical History: Denies all surgeries Family History Family History: Reviewed,noncontributory to illness, Unknown Social History Smoker: Non-Smoker Alcohol: Denies ETOH Use Drugs: Denies Drug Use Lives In: Home Constitutional: denies: chills, diaphoresis, fatigue, fever, malaise, sweats, weakness, others EENTM: denies: blurred vision, double vision, ear bleeding, ear discharge, ear drainage, ear pain, ear ringing, eye pain, eye redness, hearing loss, mouth pain, mouth swelling, nasal discharge, nose bleeding, nose congestion, nose pain, photophobia, tearing, throat pain, throat swelling, voice changes, others Respiratory: denies: cough, hemoptysis, orthopnea, SOB at rest, shortness of breath, SOB with excertion, stridor, wheezing, others Cardiovascular: denies: chest pain, dizzy spells, diaphoresis, Dyspnea on exertion, edema, irregular heart beat, left arm pain, lightheadedness, palpitations, PND, syncope, others Gastrointestinal: denies: abdomen distended, abdominal pain, blood streaked bowels, constipated, diarrhea, dysphagia, difficulty swallowing, hematemesis, melena, nausea, poor appetite, poor fluid intake, rectal bleeding, rectal pain, vomiting, others Genitourinary: denies: burning, dysuria, flank pain, frequency, hematuria, incontinence, penile discharge, penile sore, pain, testicle pain, testicle sw elling, urgency, others Neurological: reports: numbness (BLE); denies: dizziness, fainting, headache, left sided numbness, left sided weakness, paresthesia, pre-existing deficit, right sided numbness, right sided weakness, seizure, speech problems, tingling, tremors, weakness, others Musculoskeletal: reports: others (BLE pain ); denies: back pain, gout, joint pain, joint swelling, muscle pain, muscle stiffness, neck pain Integumetry: denies: bruises, change in color, change in hair/nails, dryness, laceration, lesions, lumps, rash, wounds, others Allergic/Immunocompromised: denies: Difficulty Healing, Frequent Infections, Hives, Itching, others Hematologic/Lymphatic: denies: anemia, blood clots, easy bleeding, easy bruising, swollen glands, others Endocrine: denies: excessive hunger, excessive sweating, excessive thirst, excessive urination, flushing, intolerance to cold, intolerance to heat, unexplained weight gain, unexplained weight loss, others Psychiatric: denies: anxiety, bipolar disorder, depression, hopeless, panic disorder, schizophrenia, sleepless, suicidal, others All Other Systems: Reviewed and Negative Physical Exam General Appearance: Moderate Distress, Obese HEENT: Normal ENT Inspection, Pale Conjuntivae (L), Pale Conjuntivae (R), PERRL/EOMI Neck: Full Range of Motion, Non-Tender, Normal, Normal Inspection Respiratory: Chest Non-Tender, Lungs Clear, No Accessory Muscle Use, No Respiratory Distress, Normal Breath Sounds Cardiovascular: No Edema, No JVD, No Murmur, No Gallop, Normal Peripheral Pulses, Regular Rate/Rhythm Breast Exam: Deferred Gastrointestinal: No Organomegaly, Non Tender, No Pulsatile Mass, Normal Bowel Sounds, Soft Genitalia: Deferred Pelvic: Deferred Rectal: Deferred Extremities: No calf tenderness, Normal capillary refill, Normal inspection, Normal range of motion, Non-tender, No pedal edema, Other (Both extremities are warm there is no dermatitis is very little pulses possibly pad) Neurologic: Alert, 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 Was a procedure done?: No Differential Diagnosis EXT Differential Diagnosis: Cellulitis, Deep Vein Thrombosis, Sprain, DJD, Cont usion, Neurovascular injury, Arthritis X-Ray, Labs, Meds, VS Vital Signs Date Time Temp Pulse Resp B/P (MAP) Pulse Ox O2 Delivery O2 Flow Rate FiO2 04/19/25 16:15 98.0 96 18 157/91 97 98.0 X-Ray, Labs, Meds, VS Comment VASCULAR ULTRASOUND NEGATIVE LIKELY SECONDARY TO PATIENT'S PERIPHERAL NEUROPATHY . PATIENT GIVEN TORADOL 60 MG IM REPORTS IMPROVEMENT IN PAIN REQUESTING DISCHARGE AT THIS TIME. SCRIPT TRIAL OF ALL FULL BIT ADVISED TO FOLLOW UP WITH HIS PCP IN 2-3 DAYS NEEDED CONSIDER REFERRAL TO PAIN MANAGEMENT FOR CONTINUED MANAGEMENT OF HIS PAIN. ER RETURN PRECAUTIONS GIVEN PATIENT INDICATES UNDERSTANDING AGREES WITH DISCHARGE PLAN OF CARE. Time of 1ST Reevaluation: 16:49 Reevaluation 1ST: Unchanged Time of 2ND Reevaluation: 18:47 Reevaluation 2ND: Improved Patient Education/Counseling: Diagnosis, Treatment, Prognosis Family Education/Counseling: No Family Present Departure 1 Departure Time of Disposition: 18:47 Impression: Primary Impression: Diabetic neuropathy, painful Disposition: 01 HOME / SELF CARE / HOMELESS Condition: Stable e-Prescriptions Folic Byts-Uizccyfobp-Czntazbw (Folbic) Tab 1 TAB PO DAILY for 30 Days, #30 TAB Prov: MADHU CABRERA 04/19/25 Discharged With: Spouse Critical Care Note Critical Care Time?: No Stability Stability form required: No I personally scribed for KEE HUERTAS MD ([email or web address]) on 04/19/25 at 16:52. Electronically submitted by Tatum Jordan ([email or web address]). KEE HUERTAS MD Apr 19, 2025 16:52 MADHU CABRERA Apr 19, 2025 18:56
--- NOTE | 2025-04-19 18:16 | DVH ---
BILATERAL Lower Extremity Arterial Duplex Date: 04/19/2025 05:26 PM Clinical History: Severe pain both legs Comparison: None Technique: Duplex Doppler evaluation including color Doppler and spectral/pulsed waveform analysis of the lower extremity arteries was performed. Finding: RIGHT: Peak systolic velocities are as follows: PUPPY TRAINER 103 cm/s Deep femoral 97 cm/s SFA proximal 83 cm/s SFA mid-portion 69 cm/s SFA distal 66 cm/s Popliteal 69 cm/s Posterior tibial 54 cm/s Anterior tibial 102 cm/s Dorsalis pedis 107 cm/s The waveforms are triphasic waveform throughout. LEFT: Peak systolic velocities are as follows: PUPPY TRAINER 74 cm/s Deep femoral 89 cm/s SFA proximal 103 cm/s SFA mid-portion 71 cm/s SFA distal 59 cm/s Popliteal 65 cm/s Posterior tibial 75 cm/s Anterior tibial 89 cm/s Dorsalis pedis 131 cm/s The waveforms are triphasic waveform throughout. REFERENCE VALUES, [facility]) vascular Imaging Lab Criteria: Peak systolic velocity ranges (in cm/sec) are as follows: <150 cm/s - <20 % stenosis 150-200 cm/s - 20-49% stenosis 200-300 cm/s - 50-75% stenosis >300 cm/s -> 75% stenosis IMPRESSION: 1. There is no evidence for peripheral vascular insufficiency in the right lower extremity. 2. There is no evidence for peripheral vascular insufficiency in the left lower extremity. 3. No significant focal stenosis is identified.
[2025-04-19] MEDS ORDERED: FOLITAB22 PO (18:55)
[2025-04-19] MEDS: KETOROLAC TROMETH 60MG/2ML VIAL IM ONE (19:03)
== END 2025-04-19 19:07 | disposition home or self-care (01) ==
LOC: ER 16:13
DX: E11.40 Type 2 diabetes mellitus with diabetic neuropathy, unspecified (principal); Z79.899 Other long term (current) drug therapy
CPT/HCPCS: 93925; 96372; 99285; J1885

== ENCOUNTER 2025-07-07 12:43 | Emergency (ER) | payer MEDICAID ==
[~2025-07-07] VITALS: Ht 175.3 cm; Wt 102.0 kg
--- NOTE | 2025-07-07 13:54 | ED.PDOC ---
History of Present Illness HPI Comments This is a 49 year old male presenting to the ED with chief complaint of hypertension. Patient reports that despite taking his medication Metoprolol and Nifedipine daily, his blood pressure has not lowered significantly for the past 3 days. Patient relays that he is now experiencing associated headache, SOB, chest pressure, and palpitations. Patient states his symptoms have since resolved. Denies any dizziness Denies blurred vision Denies abdominal pain Denies urinary retention Denies focal loss of strength/sensation or changes in speech Chief Complaint: High Blood Pressure Time Seen by MD: 13:49 Primary Care Provider: UNKNOWN Reviewed Notes: Nurses Notes, Medications, Allergies Allergies: Coded Allergies: NO KNOWN ALLERGIES (Unverified , 06/06/24) Home Meds Active Scripts Ibuprofen (Ibuprofen) 800 Mg Tab, 1 TAB PO TID, #30 TAB Prov:JERRICA MARTINEZ 02/13/25 Hydroxyzine Hcl (Hydroxyzine Hcl) 50 Mg Tab, 1 TAB PO BID, #30 TAB Prov:JERRICA MARTINEZ 02/13/25 Triamcinolone Acetonide (Triamcinolone Acetonide) 0.1 % Oin, 1 APPLIC TOP BID, #60 GRAMS Prov:JERRICA MARTINEZ 02/13/25 Metoprolol Tartrate (Metoprolol Tartrate) 50 Mg Tab, 50 MG PO BID, #180 TAB Prov:NICHOLAS CALDWELL MD 02/06/25 Hydrocodone-Acetaminophen (Hydrocodone Bitartrate/AC 5-325 mg) 1 Tab Tab, 1 TAB PO QID PRN, #30 TAB Prov:NICHOLAS CALDWELL MD 02/06/25 Metformin Hydrochloride (Metformin Hcl) 1,000 Mg Tab, 1 TAB PO BID, #180 TAB 3 Refills Prov:NICHOLAS CALDWELL MD 02/06/25 Information Source: Patient, Relative (Child) Mode of Arrival: Ambulatory Severity: Moderate Timing: Days Duration: Since onset Prehospital treatment: None Medication Refill: For: Hypertension Past Medical History PAST MEDICAL HISTORY: DM, HTN Surgical History (Other): Foot surgery Family History Family History: Reviewed,noncontributory to illness, Unknown Social History Smoker: Non-Smoker Alcohol: Denies ETOH Use Drugs: Denies Drug Use Lives In: Home Constitutional: denies: chills, diaphoresis, fatigue, fever, malaise, sweats, weakness, others EENTM: denies: blurred vision, double vision, ear bleeding, ear discharge, ear drainage, ear pain, ear ringing, eye pain, eye redness, hearing loss, mouth pain, mouth swelling, nasal discharge, nose bleeding, nose congestion, nose pain, photophobia, tearing, throat pain, throat swelling, voice changes, others Respiratory: denies: cough, hemoptysis, orthopnea, SOB at rest, shortness of breath, SOB with excertion, stridor, wheezing, others Cardiovascular: reports: chest pain, palpitations; denies: dizzy spells, diaphoresis, Dyspnea on exertion, edema, irregular heart beat, left arm pain, lightheadedness, PND, syncope, others Gastrointestinal: denies: abdomen distended, abdominal pain, blood streaked bowels, constipated, diarrhea, dysphagia, difficulty swallowing, hematemesis, melena, nausea, poor appetite, poor fluid intake, rectal bleeding, rectal pain, vomiting, others Genitourinary: denies: burning, dysuria, flank pain, frequency, hematuria, incontinence, penile discharge, penile sore, pain, testicle pain, testicle swelling, urgency, others Neurological: reports: headache; denies: dizziness, fainting, left sided numbness, left sided weakness, numbness, paresthesia, pre-existing deficit, right sided numbness, right sided weakness, seizure, speech problems, tingling, tremors, weakness, others Musculoskeletal: denies: back pain, gout, joint pain, joint swelling, muscle pain, muscle stiffness, neck pain, others Integumetry: denies: bruises, change in color, change in hair/nails, dryness, laceration, lesions, lumps, rash, wounds, others Allergic/Immunocompromised: denies: Difficulty Healing, Frequent Infections, Hives, Itching, others Hematologic/Lymphatic: denies: anemia, blood clots, easy bleeding, easy bruising, swollen glands, others Endocrine: denies: excessive hunger, excessive sweating, excessive thirst, excessive urination, flushing, intolerance to cold, intolerance to heat, unexplained weight gain, unexplained weight loss, others Psychiatric: denies: anxiety, bipolar disorder, depression, hopeless, panic disorder, schizophrenia, sleepless, suicidal, others All Other Systems: Reviewed and Negative Physical Exam General Appearance: No Apparent Distress, Normal HEENT: Normal ENT Inspection, Pharynx Normal, TMs Normal Neck: Full Range of Motion, Non-Tender, Normal, Normal Inspection Respiratory: Chest Non-Tender, Lungs Clear, No Accessory Muscle Use, No Respiratory Distress, Normal Breath Sounds Cardiovascular: No Edema, No JVD, No Murmur, No Gallop, Normal Peripheral Pulses, Regular Rate/Rhythm Breast Exam: Deferred Gastrointestinal: No Organomegaly, Non Tender, No Pulsatile Mass, Normal Bowel Sounds, Soft Genitalia: Deferred Pelvic: Deferred Rectal: Deferred Extremities: No calf tenderness, Normal capillary refill, Normal inspection, Normal range of motion, Non-tender, No pedal edema Musculoskeletal : Apperance: Normal 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 Was a procedure done?: No Differential Dx Considerations may include: Hypertension X-Ray, Labs, Meds, VS Vital Signs Date Time Temp Pulse Resp B/P (MAP) Pulse Ox O2 Delivery O2 Flow Rate FiO2 07/07/25 17:19 83 16 99 Room Air 07/07/25 17:19 98.7 78 16 116/73 (87) 99 98.7 07/07/25 16:22 78 07/07/25 12:55 76 07/07/25 12:45 97.7 78 16 173/110 100 97.7 Lab Test 07/07/25 15:34 07/07/25 14:53 07/07/25 14:00 Range/Units Urine Color Yellow Yellow Urine Clarity Turbid H Clear Urine pH 7.0 5.0-9.0 Urine Specific [place] 1.019 1.001-1.035 Urine Protein Trace H Negative Urine Ketones Negative Negative Urine Blood Negative Negative /uL Urine Nitrite Negative Negative Urine Bilirubin Negative Negative Urine Urobilinogen Normal Negative mg/dL Urine Leukocyte Esterase Negative Negative /uL Urine RBC 1 0 - 3 /hpf Urine Microscopic WBC 3 0-3 /HPF Urine Squamous Epithelial Cells Few <5 /hpf Urine Amorphous Crystals Few None Seen /hpf Urine Bacteria Few H None Seen /hpf Urine Glucose 1+ H Normal mg/dL Troponin I High Sensitivity 3 L < 3 L </=54 ng/L White Blood Count 8.1 4.4-10.8 10^3/uL Red Blood Count 5.11 4.5-5.90 10^6/uL Hemoglobin 14.3 13.5-17.5 g/dL Hematocrit 40.6 L 41.0-53.0 % Mean Corpuscular Volume 79.4 L 80.0-100.0 fL Mean Corpuscular Hemoglobin 28.0 28.0-32.0 pg Mean Corpuscular Hemoglobin Concent 35.2 32.0-36.0 g/dL Red Cell Distribution Width 13.2 11.8-14.3 % Platelet Count 372 140-450 10^3/uL Mean Platelet Volume 6.4 L 6.9-10.8 fL Neutrophils (%) (Auto) 54.0 37.0-80.0 % Lymphocytes (%) (Auto) 33.2 10.0-50.0 % Monocytes (%) (Auto) 10.2 0.0-12.0 % Eosinophils (%) (Auto) 1.8 0.0-7.0 % Basophils (%) (Auto) 0.8 0.0-2.0 % Neutrophils # (Auto) 4.4 1.6-8.6 10 ^3/uL Lymphocytes # (Auto) 2.7 0.4-5.4 10 ^3/uL Monocytes # (Auto) 0.8 0-1.3 10 ^3/uL Eosinophils # (Auto) 0.1 0-0.8 10 ^3/uL Basophils # (Auto) 0.1 0-0.2 10 ^3/uL Nucleated Red Blood Cells 0.1 % Sodium Level 142 136-145 mmol/L Potassium Level 4.0 3.5-5.1 mmol/L Chloride Level 102 98-107 mmol/L Carbon Dioxide Level 30 20-31 mmol/L Anion Gap 10 5-15 Blood Urea Nitrogen 19 9-23 mg/dL Creatinine 1.16 0.700-1.30 mg/dL Glomerular Filtration Rate Calc 77 >90 mL/min BUN/Creatinine Ratio 16.4 10.0-20.0 Serum Glucose 118 H 74-106 mg/dL Calcium Level 10.2 8.7-10.4 mg/dL Magnesium Level 2.0 1.6-2.6 mg/dL Total Bilirubin 0.6 0.2-1.0 mg/dL Aspartate Amino Transferase (AST) 19 13-40 U/L Alanine Aminotransferase (ALT) 21 7-40 U/L Alkaline Phosphatase 151 H 46-116 U/L B-Type Natriuretic Peptide 28.58 0-100 pg/mL Total Protein 7.7 5.7-8.2 g/dL Albumin 4.5 3.2-4.8 g/dL [place] [address] Ph: [phone] DIAGNOSTIC IMAGING Diagnostic Imaging Report : [id number] Signed PATIENT: TONIA MONDRAGONCCT: [id number] UNIT: [id number] : 1975 LOC: ER ROOM / BED: / AGE / SEX: 49 / M ADM STATUS: REG ER SERVICE [id number] ORDERING PHYSICIAN: CHAITANYA HERNANDEZ NP PROCEDURE(s): CXR1 - CHEST XRAY 1 VIEW REASON: CP ORDER NUMBER(s): [id number], ACCESSION NUMBER(s): [id number] CHEST RADIOGRAPH Indication: CP Technique: Single frontal view of the chest was obtained Comparison: None FINDINGS: Lines and Tubes: None Lungs: No focal consolidation. Pleura: No effusion. No pneumothorax. Cardiomediastinal contours: Unremarkable Bones: No acute osseous abnormality. IMPRESSION: No acute cardiopulmonary disease. ATED BY: MARA WU DO DICTATED DATE/TIME: 07/07/25 142 SIGNED BY: MARA WU DO SIGNED DATE/TIME: 07/07/25 142 CC: X-Ray, Labs, Meds, VS Comment This is a 49 year old male presenting to the ED with chief complaint of high blood pressure. Patient arrives alert and oriented, ABC's intact, afebrile, vital signs stable, saturating well in room air Peripheral IV insertion+ labs were ordered. CBC was ordered to exclude anemia, blood loss, or infection. CMP was ordered to exclude electrolyte abnormalities, renal failure, dehydration, hyperglycemia and/or liver enzyme abnormalities. Troponin and BNP were ordered to rule out myocardial infarction, or congestive heart failure. Urinalysis was ordered to rule out UTI or hematuria. Magnesium was ordered to rule out Hypomagnesemia. Diagnostic imaging ordered by me and results interpreted by radiology : Chest XR Unrelated to activity. Pain not associated nausea, vomiting, or diaphoresis. Differential diagnosis includes: acute coronary syndrome, pulmonary embolism, pneumo-thorax, boerhaves syndrome, and aortic dissection. Baised on the description of pain. Lack of association with exertion and or associated symptoms do not feel cardiac. Pt has normal ekg and troponin. Pt has no cardiac risk factors. In terms of pneumothorax no evidence of one seen on cxr. Pulmonary embolism also considered but has no risk factors including family history. Pt has no hypoxia with normal ekg and cxr. Do not feel patient has dissection based on description of pain and normal blood pressure. Also explained to patient that things may change and important to return immediately if any concerns. Additional MDM Review of External, Non-ED records: External records reviewed. Discussion with independent historian (EMS, family) history obtained from the patient/parents (if applicable) at bedside Chronic conditions affecting care: None Social determinants of health affecting care: None Consideration of admission (observation or admission): I considered escalation of care to admission for this patient, however given the reassuring workup, the patient is safe for outpatient management. Discussion with the Radiology: No Tests considered but not performed: None Prescription medication considered but not given: None 12 lead EKG interpretation: Time of 1ST Reevaluation: 14:15 Reevaluation 1ST: Unchanged Patient Education/Counseling: Diagnosis, Treatment Family Education/Counseling: Diagnosis, Treatment SEPSIS Sepsis Screen Date sepsis recognized/suspect: Jul 07, 2025 Time Sepsis recognized/suspect: 1250 Recent Procedure: No On Antibiotic Therapy: No Respiratory Rate >20: No Heart Rate >90: No Temp<36 C (96.8 F) or >38.3 C: No SBP <90 or MAP <65 mmHG: No New Acute Mental Status Change: No Is the patient on CPAP, BIPAP,: No Physician Orders Chest Xray 1 View (07/07/25 13:49) Vital Signs Date Time Temp Pulse Resp B/P (MAP) Pulse Ox O2 Delivery O2 Flow Rate FiO2 07/07/25 17:19 83 16 99 Room Air 07/07/25 17:19 98.7 78 16 116/73 (87) 99 98.7 07/07/25 16:22 78 07/07/25 12:55 76 07/07/25 12:45 97.7 78 16 173/110 100 97.7 Laboratory Tests Test 07/07/25 14:00 White Blood Count 8.1 10^3/uL (4.4-10.8) Departure 1 Departure Time of Disposition: 17:19 Impression: Primary Impression: HTN (hypertension) Qualified Codes: I10 - Essential (primary) hypertension Disposition: 01 HOME / SELF CARE / HOMELESS Condition: Stable Additional Instructions: Discharge Note: Continue on your medications. Do not drive when taking narcotics. Drink plenty of fluids. Follow up with your primary Dr. Take your prescriptions as ordered. If your condition becomes worse call and follow up with your primary Dr. for instructions or return to the ER if needed. Thank you for visiting [facility]. Written Prescriptions Today discussed importance of regular exercise Sodium restriction DASH diet Limit or illuminate alcohol intake Patient verbalized understanding Follow-up with PCP Discharged With: Self Critical Care Note Critical Care Time?: No Stability Stability form required: No Heart Score Heart Score: Heart Score Response (Comments) Value History N/A 0 EKG N/A 0 Age N/A 0 Risk Factors N/A 0 Troponin N/A 0 Total 0 I personally scribed for CHAITANYA HERNANDEZ MICA SPREADER ([email or web address]) on 07/07/25 at 13:54. Electronically submitted by Tito Howe ([email or web address]). I personally scribed for CHAITANYA HERNANDEZ MICA SPREADER ([email or web address]) on 07/07/25 at 15:41. Electronically submitted by Tito Howe ([email or web address]). CHAITANYA HERNANDEZ NP Jul 07, 2025 13:54
[2025-07-07 14:16] LABS: Hematocrit 40.6 % (41.0-53.0); Hemoglobin 14.3 g/dL (13.5-17.5); Mean Corpuscular Hemoglobin 28.0 pg (28.0-32.0); Mean Corpuscular Volume 79.4 fL (80.0-100.0); Nucleated Red Blood Cells % 0.1 %
--- NOTE | 2025-07-07 14:23 | DVH ---
CHEST RADIOGRAPH Indication: CP Technique: Single frontal view of the chest was obtained Comparison: None FINDINGS: Lines and Tubes: None Lungs: No focal consolidation. Pleura: No effusion. No pneumothorax. Cardiomediastinal contours: Unremarkable Bones: No acute osseous abnormality. IMPRESSION: No acute cardiopulmonary disease.
[2025-07-07 14:35] LABS: Alanine Aminotransferase 21 U/L (7-40); Albumin 4.5 g/dL (3.2-4.8); Anion Gap 10 (5-15); BUN/Creatinine Ratio 16.4 (10.0-20.0); Blood Urea Nitrogen 19 mg/dL (9-23); Calcium 10.2 mg/dL (8.7-10.4); Carbon Dioxide 30 mmol/L (20-31); Chloride 102 mmol/L (98-107); Magnesium 2.0 mg/dL (1.6-2.6); Potassium 4.0 mmol/L (3.5-5.1); Sodium 142 mmol/L (136-145); Total Protein 7.7 g/dL (5.7-8.2)
[2025-07-07 14:36] LABS: Bilirubin, Total 0.6 mg/dL (0.2-1.0)
[2025-07-07 14:38] LABS: Alkaline Phosphatase 151 U/L (46-116); Glucose 118 mg/dL (74-106)
--- NOTE | 2025-07-07 14:49 | ECG ---
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
[2025-07-07 15:44] LABS: Urine Amorphous Crystal FEW /hpf (None Seen); Urine Protein, UAD TRACE (Negative)
[2025-07-07 17:19] VITALS: BP 116/73; PULSE 83; RESP 16; TEMP 98.7; O2SAT 99
--- NOTE | 2025-07-08 12:04 | ECG ---
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
== END 2025-07-07 17:26 | disposition home or self-care (01) ==
LOC: ER 12:43
DX: I10 Essential (primary) hypertension (principal); E11.9 Type 2 diabetes mellitus without complications; R07.89 Other chest pain; R00.2 Palpitations; R06.02 Shortness of breath; Z79.84 Long term (current) use of oral hypoglycemic drugs; Z79.899 Other long term (current) drug therapy
CPT/HCPCS: 36415; 71045; 80053; 81001; 83735; 83880; 84484; 85025; 93005

== ENCOUNTER → 2025-08-01 | Outpatient (CLI) | payer MEDICAID | END | disposition home or self-care (01) | LOC: Rad HDHVI 09:08 | PROVIDERS: ATTEND Internal Medicine Cardiovascular Disease | DX: I77.810 Thoracic aortic ectasia (principal); R42 Dizziness and giddiness; R11.0 Nausea | CPT/HCPCS: 93306 ==